=== PATIENT | female | born 1980 | race American Indian/Alaskan Native ===

== ENCOUNTER 2017-01-29 00:44 | Emergency (ER) | payer OTHER ==
[2017-01-29 01:06] VITALS: BP 130/82
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
[2017-01-29] MEDS ORDERED: MOTRIN PO ONE (04:24)
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
== END 2017-01-29 05:48 | disposition home or self-care (01) ==
LOC: ED 00:44
DX: S13.4XXA Sprain of ligaments of cervical spine, initial encounter (principal); S66.912A Strain of unspecified muscle, fascia and tendon at wrist and hand level, left hand, initial encounter; S56.112A Strain of flexor muscle, fascia and tendon of left index finger at forearm level, initial encounter; V40.5XXA Car driver injured in collision with pedestrian or animal in traffic accident, initial encounter; Y93.89 Activity, other specified; Y99.8 Other external cause status; Y92.488 Other paved roadways as the place of occurrence of the external cause